=== PATIENT | female | born 1980 | race Caucasian/White ===

== ENCOUNTER 2019-05-23 14:21 | Emergency (ER) | payer SELFPAY ==
[2019-05-23] MEDS ORDERED: NA CHLORIDE 0.9% 1,000 ML ONE (15:19)
[2019-05-23] MEDS ORDERED: LORazepam 2 MG/ML VIAL ONE (15:19)
[2019-05-23 15:31] LABS: Basophils % 0.5 % (0-1.3); Hematocrit 39.2 % (36.0-45.0); Lymphocytes % 29.1 % (15.3-44.8); MPV 11.1 fL (7.6-11.3); RBC Red Blood Cell Count 4.11 M/uL (3.86-4.86)
[2019-05-23 15:35] LABS: Protime INR 1.01
[2019-05-23 15:46] LABS: Albumin 3.7 g/dL (3.4-5.0); Bilirubin Direct 0.1 mg/dL (0-0.2); Bilirubin Total 0.5 mg/dL (0.2-1.0); Potassium 3.4 mmol/L (3.5-5.1); Protein, Total 7.3 g/dL (6.4-8.2)
--- NOTE | 2019-05-23 16:28 | ER ---
Nurse's Notes [facility] Name: Mony Hodgson Age: 39 yrs Sex: Female : 1980 Arrival Date: 05/23/2019 Time: 14:24 Bed 17 Private MD: Diagnosis: Acute stress reaction;Anxiety disorder, unspecified Presentation: 05/23 14:29 Presenting complaint: Patient states: "Im having a panic attack" Patient states that aj1 she takes Klonopin for anxiety, but she has been out of it for the past 4 days. They just moved here and she hasn't been able to find a psychiatrist. States that she formerly saw a doctor in [place]. Transition of care: patient was not received from another setting of care. Onset of symptoms was May 23, 2019. Risk Assessment: Do you want to hurt yourself or someone else? Patient reports no desire to harm self or others. Initial Sepsis Screen: Does the patient meet any 2 criteria? RR > 20 per min. HR > 90 bpm. Yes Does the patient have a suspected source of infection? No. Patient's initial sepsis screen is negative. Care prior to arrival: None. 14:29 Method Of Arrival: Ambulatory aj1 14:29 Acuity: JANELLE 3 aj1 Triage Assessment: 14:34 General: Appears uncomfortable, Behavior is anxious, restless. Pain: Complains of pain aj1 in chest. Neuro: Level of Consciousness is awake, alert, obeys commands. Cardiovascular: Patient's skin is warm and dry. Respiratory: Airway is patent Respiratory effort is even, unlabored, Respiratory pattern is regular, symmetrical. 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 - Coronavirus screen:: The patient has NOT traveled to [place] in the past 14 days. - Social history:: Smoking status: Patient reports the use of cigarette tobacco products, smokes one-half pack cigarettes per day. - Ebola Screening: : Patient denies travel to an Ebola-affected area in the 21 days before illness onset. Screenin:39 Abuse screen: Denies threats or abuse. Denies injuries from another. Nutritional tw2 screening: No deficits noted. Tuberculosis screening: No symptoms or risk factors identified. Fall Risk None identified. Assessment: 14:40 General: Appears slender, Behavior is anxious. Pain: Denies pain. Neuro: Level of tw2 Consciousness is awake, alert, obeys commands, Oriented to person, place, time, situation. Cardiovascular: Heart tones S1 S2 Patient's skin is warm and dry. Respiratory: Airway is patent Respiratory effort is even, unlabored, Respiratory pattern is regular, symmetrical, Breath sounds are clear bilaterally. GI: No signs and/or symptoms were reported involving the gastrointestinal system. Abdomen is flat, Bowel sounds present X 4 quads. : No signs and/or symptoms were reported regarding the genitourinary system. EENT: No signs and/or symptoms were reported regarding the EENT system. Derm: No signs and/or symptoms reported regarding the dermatologic system. Musculoskeletal: Range of motion: intact in all extremities. 15:40 Reassessment: Patient appears in no apparent distress at this time. Patient and/or tw2 family updated on plan of care and expected duration. Pain level reassessed. Patient is alert, oriented x 3, equal unlabored respirations, skin warm/dry/pink. Patient states feeling better. 16:34 Reassessment: provider at bedside going over results with pt and re-evaluating for tw2 discharge at this time. 16:43 Reassessment: Patient appears in no apparent distress at this time. Patient and/or tw2 family updated on plan of care and expected duration. Pain level reassessed. Patient is alert, oriented x 3, equal unlabored respirations, skin warm/dry/pink. Patient states feeling better. Vital Signs: 14:34 BP 182 / 112; Pulse 132; Resp 28; Temp 98.0; Pulse Ox 100% on R/A; Weight 58.97 kg (R); aj1 Height 5 ft. 6 in. (167.64 cm) (R); Pain 0/10; 15:35 BP 176 / 97; Pulse 93; Resp 19; Pulse Ox 95% on R/A; tw2 16:35 BP 177 / 100; Pulse 90; Resp 19; Pulse Ox 99% on R/A; tw2 14:34 Body Mass Index 20.98 (58.97 kg, 167.64 cm) aj1 ED Course: 14:24 Patient arrived in ED. ag5 14:34 Triage completed. aj1 14:34 Arm band placed on. aj1 14:36 Bed in low position. Call light in reach. Adult w/ patient. patient monitor on. Pulse tw2 ox on. NIBP on. Notified Nurse Practitioner and/or Physician Leaf Tinner of. Warm blanket given. 14:43 Patricio Granger NP is PHCP. pm1 14:43 Deepak Garcia MD is Attending Physician. pm1 14:49 Janelle Ni RN is Primary Nurse. tw2 15:21 Initial lab(s) drawn, by pr, sent to lab. Inserted saline lock: 20 gauge in right em1 wrist, using aseptic technique. Blood collected. 16:13 EKG done, by ED staff, reviewed by Patricio Granger NP. em1 16:43 No provider procedures requiring assistance completed. IV discontinued, intact, tw2 bleeding controlled, No redness/swelling at site. Pressure dressing applied. Administered Medications: 15:18 Drug: Ativan 1 mg Route: IVP; Site: right hand; tw2 15:40 Follow up: Response: No adverse reaction; Anxiety decreased tw2 15:22 Drug: NS 0.9% 1000 ml Route: IV; Rate: 1000 ml; Site: right hand; tw2 16:40 Follow up: Response: No adverse reaction; IV Status: Completed infusion; IV Intake: tw2 1000ml Intake: 16:40 IV: 1000ml; Total: 1000ml. tw2 Outcome: 16:27 Discharge ordered by . pm1 16:43 Patient left the ED. tw2 16:43 Discharged to home ambulatory, with significant other. tw2 16:43 Condition: stable 16:43 Discharge instructions given to patient, significant other, Instructed on discharge instructions, follow up and referral plans. no drinking with medication, no driving heavy equipment, medication usage, Demonstrated understanding of instructions, follow-up care, medications, Prescriptions given X 1. Signatures: Lupe Bean, RN RN aj1 Mauro Garcia em1 Patricio Granger, KAREN METAL ROOFING MECHANIC pm1 Janelle Ni RN RN tw2 Padmaja Nicole ag5 Corrections: (The following items were deleted from the chart) 19:48 14:40 General: Appears in no apparent distress. slender, Behavior is anxious, tw2 tw2
--- NOTE | 2019-05-23 16:28 | EDPHYS ---
Physician Documentation [facility] Name: Mony Hodgson Age: 39 yrs Sex: Female : 1980 Arrival Date: 05/23/2019 Time: 14:24 Bed 17 Private MD: ED Physician Deepak Garcia HPI: 05/23 16:05 This 39 yrs old Female presents to ER via Ambulatory with complaints of pm1 Anxiety. 16:05 The patient presents to the emergency department with anxiety. Onset: The pm1 symptoms/episode began/occurred 4 day(s) ago. Past psychiatric history: Prior diagnosis: anxiety and panic disorder, Psychiatric medications include: clonazepam , Primary psychiatric physician: the patient does not have a primary psychiatric physician, patient moved to the area and has not reestablished psychiatry. Took clonazepam BID until it ran out 4 days ago. Since running out she is having panic attacks with chest pain and shortness of breath. Associated signs and symptoms: Pertinent positives; anxiety, chest pain, shortness of breath, Pertinent negatives: abdominal pain, hallucinations, homicidal ideation, substance abuse, suicide ideation. Severity of symptoms: in the emergency department the symptoms are worse. The patient has not recently seen a physician. 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 - Coronavirus screen:: The patient has NOT traveled to [place] in the past 14 days. - Social history:: Smoking status: Patient reports the use of cigarette tobacco products, smokes one-half pack cigarettes per day. - Ebola Screening: : Patient denies travel to an Ebola-affected area in the 21 days before illness onset. ROS: 16:05 Constitutional: Negative for fever, chills, and weight loss, Eyes: Negative for injury, pm1 pain, redness, and discharge, ENT: Negative for injury, pain, and discharge, Neck: Negative for injury, pain, and swelling. 16:05 Abdomen/GI: Negative for abdominal pain, nausea, vomiting, diarrhea, and constipation, Back: Negative for injury and pain, MS/Extremity: Negative for injury and deformity, Skin: Negative for injury, rash, and discoloration, Neuro: Negative for headache, weakness, numbness, tingling, and seizure. 16:05 Cardiovascular: Positive for chest pain, Negative for edema, orthopnea, palpitations. 16:05 Respiratory: Positive for shortness of breath, Negative for cough, sputum production, wheezing. Exam: 16:05 Constitutional: This is a well developed, well nourished patient who is awake, alert, pm1 and in no acute distress. Head/Face: Normocephalic, atraumatic. Eyes: Pupils equal round and reactive to light, extra-ocular motions intact. Lids and lashes normal. Conjunctiva and sclera are non-icteric and not injected. Cornea within normal limits. Periorbital areas with no swelling, redness, or edema. ENT: Nares patent. No nasal discharge, no septal abnormalities noted. Tympanic membranes are normal and external auditory canals are clear. Oropharynx with no redness, swelling, or masses, exudates, or evidence of obstruction, uvula midline. Mucous membranes moist. Neck: Trachea midline, no thyromegaly or masses palpated, and no cervical lymphadenopathy. Supple, full range of motion without nuchal rigidity, or vertebral point tenderness. No Meningismus. Chest/axilla: Normal chest wall appearance and motion. Nontender with no deformity. No lesions are appreciated. Respiratory: Lungs have equal breath sounds bilaterally, clear to auscultation and percussion. No rales, rhonchi or wheezes noted. No increased work of breathing, no retractions or nasal flaring. Abdomen/GI: Soft, non-tender, with normal bowel sounds. No distension or tympany. No guarding or rebound. No evidence of tenderness throughout. 16:05 Back: No spinal tenderness. No costovertebral tenderness. Full range of motion. Skin: Warm, dry with normal turgor. Normal color with no rashes, no lesions, and no evidence of cellulitis. MS/ Extremity: Pulses equal, no cyanosis. Neurovascular intact. Full, normal range of motion. 16:05 Cardiovascular: Rate: tachycardic, Rhythm: regular, Pulses: no pulse deficits are appreciated, Heart sounds: normal, Edema: is not appreciated. 16:05 Neuro: Orientation: is normal, Motor: moves all fours. 16:05 Psych: Behavior/mood is anxious, Affect is animated, Oriented to person, place, time, Delusions/hallucinations are not present. Vital Signs: 14:34 BP 182 / 112; Pulse 132; Resp 28; Temp 98.0; Pulse Ox 100% on R/A; Weight 58.97 kg (R); aj1 Height 5 ft. 6 in. (167.64 cm) (R); Pain 0/10; 15:35 BP 176 / 97; Pulse 93; Resp 19; Pulse Ox 95% on R/A; tw2 16:35 BP 177 / 100; Pulse 90; Resp 19; Pulse Ox 99% on R/A; tw2 14:34 Body Mass Index 20.98 (58.97 kg, 167.64 cm) aj1 MDM: 14:53 Patient medically screened. pm1 16:26 Data reviewed: vital signs. Data interpreted: Pulse oximetry: on room air is 100 %. pm1 Interpretation: normal. Counseling: I had a detailed discussion with the patient and/or guardian regarding: the historical points, exam findings, and any diagnostic results supporting the discharge/admit diagnosis, lab results, the need for outpatient follow up, for definitive care, a family practitioner, a psychiatrist, to return to the emergency department if symptoms worsen or persist or if there are any questions or concerns that arise at home. 16:40 ED course: Patient requested increased strength of Ativan or clonazepam. Explained to pm1 patient that she needs to follow up with a PCP or psychiatry for evaluation and treatment. Explained to her that the Ativan that was prescribed should allow her time to find outpatient treatment. 05/23 15:00 Order name: Acetaminophen; Complete Time: 16:21 pm1 05/23 15:00 Order name: Basic Metabolic Panel; Complete Time: 16:21 pm1 05/23 15:00 Order name: CBC with Diff; Complete Time: 16:21 pm1 05/23 15:00 Order name: ETOH Level; Complete Time: 16:21 pm1 05/23 15:00 Order name: Hepatic Function; Complete Time: 16:21 pm1 05/23 15:00 Order name: PT-INR; Complete Time: 16:21 pm1 05/23 15:00 Order name: Ptt, Activated; Complete Time: 16:21 pm1 05/23 15:00 Order name: Salicylate; Complete Time: 16:21 pm1 05/23 15:00 Order name: Urine Drug Screen; Complete Time: 16:52 pm1 05/23 15:00 Order name: EKG; Complete Time: 15:02 pm1 05/23 16:26 Order name: Urine Dipstick--Ancillary (enter results); Complete Time: 16:52 [facility] 05/23 16:26 Order name: Urine --Ancillary (enter results); Complete Time: 16:52 [facility] 05/23 15:00 Order name: Urine Test (obtain specimen); Complete Time: 16:26 pm1 05/23 15:00 Order name: EKG - Nurse/Tech; Complete Time: 16:13 pm1 05/23 15:00 Order name: IV Saline Lock; Complete Time: 15:21 pm1 05/23 15:00 Order name: Labs collected and sent; Complete Time: 15:21 pm1 05/23 15:00 Order name: Urine Dipstick-Ancillary (obtain specimen); Complete Time: 16:26 pm1 EC:09 Rate is 93 beats/min. Rhythm is regular, Normal Sinus Rhythm with No ectopy. No Q pm1 waves. T waves are Normal. No ST changes noted. Clinical impression: Normal ECG. Administered Medications: 15:18 Drug: Ativan 1 mg Route: IVP; Site: right hand; tw2 15:40 Follow up: Response: No adverse reaction; Anxiety decreased tw2 15:22 Drug: NS 0.9% 1000 ml Route: IV; Rate: 1000 ml; Site: right hand; tw2 16:40 Follow up: Response: No adverse reaction; IV Status: Completed infusion; IV Intake: tw2 1000ml Disposition: 17:01 Co-signature as Attending Physician, Deepak Garcia MD I agree with the assessment and kdr plan of care. Disposition: 05/23/19 16:27 Discharged to Home. Impression: Acute stress reaction, Anxiety disorder, unspecified. - Condition is Stable. - Discharge Instructions: Panic Attacks, Stress and Stress Management, Generalized Anxiety Disorder. - Prescriptions for Ativan 0.5 mg Oral Tablet - take 1 tablet by ORAL route every 8 hours As needed; 10 tablet. - Medication Reconciliation Form, Thank You Letter, Antibiotic Education, Prescription Opioid Use form. - Follow up: Emergency Department; When: As needed; Reason: Worsening of condition. Follow up: Private Physician; When: 2 - 3 days; Reason: Recheck today's complaints, Continuance of care, Re-evaluation by your physician. - Problem is new. - Symptoms have improved. Signatures: Dispatcher [employer] EDLupe Christensen, RN RN aj1 Deepak Garcia MD MD kdr Marinas, Patrick SOUND ENGINEER AUDIO CONTROL SOUND ENGINEER AUDIO CONTROL pm1 Janelle Ni RN RN tw2 Corrections: (The following items were deleted from the chart) 16:43 16:27 05/23/2019 16:27 Discharged to Home. Impression: Acute stress reaction; Anxiety tw2 disorder, unspecified. Condition is Stable. Forms are Medication Reconciliation Form, Thank You Letter, Antibiotic Education, Prescription Opioid Use. Follow up: Emergency Department; When: As needed; Reason: Worsening of condition. Follow up: Private Physician; When: 2 - 3 days; Reason: Recheck today's complaints, Continuance of care, Re-evaluation by your physician. Problem is new. Symptoms have improved. pm1
[2019-05-23 16:40] LABS: Barbiturates NEGATIVE (NEGATIVE); Benzodiazepines POSITIVE (NEGATIVE); Cocaine NEGATIVE (NEGATIVE); METHAMPHETAM NEGATIVE (NEGATIVE); Methadone NEGATIVE (NEGATIVE); Opiates NEGATIVE (NEGATIVE); Phencyclidine NEGATIVE (NEGATIVE); THC Cannibis NEGATIVE (NEGATIVE)
[2019-05-23 16:41] LABS: Urine Blood TRACE (NEG); Urine Glucose NEGATIVE (NEG); Urine Protein NEGATIVE (NEG); Urine pH 5.5 (5.0-7.0)
[2019-05-23 16:51] VITALS: TEMP 98
[2019-05-23 16:53] VITALS: BP 177/100; O2SAT 99
--- NOTE | 2019-05-24 16:29 | EKG ---
Test Date: 2019-05-23 Test Time: 15:53:54 Medical Practitioners: RONNIE MEASUREMENT RESULTS: Intervals: Rate: 93 AK: 132 QRSD: 90 QT: 350 QTc: 435 [place]: P: 53 AK: 132 QRS: 58 T: 58 INTERPRETIVE STATEMENTS: Normal sinus rhythm Normal ECG No previous ECG available for comparison Electronically Signed On 05-24-19 16:27:31 [facility] DIRECTOR by Lamont Mendoza
== END 2019-05-23 16:43 | disposition home or self-care (01) ==
LOC: ER 14:21
DX: F43.0 Acute stress reaction (principal); F41.9 Anxiety disorder, unspecified; F17.210 Nicotine dependence, cigarettes, uncomplicated
CPT/HCPCS: 36415; 80048; 80076; 80307; 80320; 80329; 81003; 81025; 85025; 85610; 85730; 93005; 96361; 96374; 99284; J7030